=== PATIENT | female | born 1985 | race Caucasian/White ===

== ENCOUNTER 2017-10-18 14:07 | Inpatient (IN) | payer OTHER ==
[~2017-10-18] VITALS: Ht 170.2 cm; Wt 63.5 kg
== END 2017-10-30 17:18 | disposition home or self-care (01) | DRG 373 ==
LOC: ER 14:07 → SURH 18:24
PROC: BW21Y0Z Computerized Tomography (CT Scan) of Abdomen and Pelvis using Other Contrast, Unenhanced and Enhanced (ICD-10-PCS; principal; 2017-10-21)
PROC: 02HV33Z Insertion of Infusion Device into Superior Vena Cava, Percutaneous Approach (ICD-10-PCS; 2017-10-25)
DX: K35.3 Acute appendicitis with localized peritonitis (principal)

== ENCOUNTER → 2017-11-16 | Emergency (ER) | payer OTHER ==
[~2017-11-16] VITALS: Ht 177.8 cm; Wt 63.5 kg
[~2017-11-16] MED LIST: LEVSIN/SL0.125 MG SL; MIRALAX510 GM PO
== END | disposition home or self-care (01) ==
LOC: ER 19:36
DX: R10.31 Right lower quadrant pain (principal); K59.09 Other constipation